=== PATIENT | female | born 1945 | race Caucasian/White ===

== ENCOUNTER 2024-09-27 23:58 | Emergency (ER) | payer MEDICARE ==
[~2024-09-27] VITALS: Ht 172.7 cm; Wt 73.3 kg
[2024-09-28 00:51] VITALS: BP 156/73; RESP 18; TEMP 37.1; O2SAT 99
[2024-09-28 00:53] VITALS: PULSE 103; O2SAT 100
== END 2024-09-28 05:00 | disposition left against medical advice (07) ==
LOC: ER 23:58
DX: R05.9 Cough, unspecified (principal); Z98.890 Other specified postprocedural states; Z88.5 Allergy status to narcotic agent
CPT/HCPCS: 71045; 99283